=== PATIENT | male | born 1950 | race Caucasian/White ===

== ENCOUNTER 2022-04-26 19:40 | Emergency (ER) | payer OTHER ==
[2022-04-26] MEDS ORDERED: SODIUM CHLORIDE 1,000 ML IV ONE ×3 (19:58→23:04)
[2022-04-26 20:04] VITALS: TEMP 98.7; BMI 29.7
[2022-04-26 20:46] LABS: HEMATOCRIT 46.3 % (35.4-49); HEMOGLOBIN 16.6 G/dL (11.7-16.9); MCH 31.9 pg (25.7-33.7); MCHC 35.9 g/dl (32.0-35.9); MEAN CELL VOLUME 88.8 fl (80-96); MEAN PLT VOLUME 9.4 fl (7.5-11.1); PLATELET COUNT 318.3 10^3/uL (134-434); RBC 5.21 10^6/uL (4.00-5.60); RDW 13.1 % (11.9-15.9)
[2022-04-26 20:57] LABS: ALBUMIN 4.3 g/dl (3.4-5.0); BILIRUBIN,TOTAL 1.2 mg/dl (0.2-1); CALCIUM 9.7 mg/dl (8.5-10); CREATININE 1.1 mg/dl (0.55-1.3); TOT PROT 7.4 g/dl (6.4-8.2)
[2022-04-26] MEDS ORDERED: INSULIN REGULAR HUMAN 100 UNITS/ML *VIAL IVPUSH ONE ×2 (21:10→22:19)
[2022-04-26] MEDS ORDERED: INSULIN REGULAR HUMAN 100 UNITS/ML *VIAL ONE ×2 (21:12→22:19)
[2022-04-26 23:37] VITALS: BP 160/83; PULSE 67; RESP 18
== END 2022-04-26 23:43 | disposition home or self-care (01) ==
LOC: FER 19:40
PROC: 3E013VG Introduction of Insulin into Subcutaneous Tissue, Percutaneous Approach (ICD-10-PCS; principal; 2022-04-26)
PROC: 3E013VG Introduction of Insulin into Subcutaneous Tissue, Percutaneous Approach (ICD-10-PCS; 2022-04-26)
PROC: 3E0337Z Introduction of Electrolytic and Water Balance Substance into Peripheral Vein, Percutaneous Approach (ICD-10-PCS; 2022-04-26)
PROC: 3E0337Z Introduction of Electrolytic and Water Balance Substance into Peripheral Vein, Percutaneous Approach (ICD-10-PCS; 2022-04-26)
PROC: 3E0337Z Introduction of Electrolytic and Water Balance Substance into Peripheral Vein, Percutaneous Approach (ICD-10-PCS; 2022-04-26)
DX: R73.9 Hyperglycemia, unspecified (principal); I10 Essential (primary) hypertension
CPT/HCPCS: 36415; 80053; 81003; 81015; 82962; 83605; 85027; 93005; 99284-25